=== PATIENT | male | born 1940 | race Caucasian/White ===

== ENCOUNTER 2017-04-26 14:11 | Emergency (ER) | payer OTHER ==
[~2017-04-26] VITALS: Ht 167.6 cm; Wt 79.1 kg
[~2017-04-26 14:11] MED LIST: ASPIRIN325 MG PO; BENICAR HCT 401 EAC1 PO; COLACE100 MG PO; DAILY VITAMIN1 EAC4 PO; DIOVAN HCT 11 TABLE1 PO; DIOVAN HCT 31 TABLE1 PO; LIPITOR40 MG PO; LIPITOR80 MG PO; METOPROLOL TART25 MG PO; NITROSTAT0.4 MG SL; PERCOCET 5/31 TABLET PO; ST. JOSEPH ASPI81 MG PO
[2017-04-26 14:49] LABS: HEMATOCRIT 45.7 % (38.0-50.0); HEMOGLOBIN 15.7 G/DL (12.5-16.6); MCH 30.3 PG (29.0-34.0); MCHC 34.4 G/DL (30.0-36.0); MCV 88.1 FL (86-99); PLATELET COUNT 285 K/uL (156-360); RBC DIS.WIDTH-CV 13.2 % (11.8-14.6); RBC DIS.WIDTH-SD 42.5 % (39-53); RED BLOOD COUNT 5.19 M/uL (4.00-5.50)
[2017-04-26 15:02] LABS: CHLORIDE 102 mEq/L (99-109); POTASSIUM 4.7 mEq/L (3.7-5.4); SODIUM 135 mEq/L (136-147)
[2017-04-26 15:04] LABS: GLUCOSE 109 mg/dL (70-99)
[2017-04-26 15:08] LABS: GFR ESTIMATE (CALCULATED) > 59 mL/min/ (58.99-99999)
[2017-04-26 15:09] LABS: UREA NITROGEN (BUN) 24 mg/dL (9-23)
[2017-04-26] MEDS ORDERED: FLOVENT 11120 INHALA IH (15:47)
[2017-04-26] MEDS ORDERED: PROVENTIL HFA6.7 GM IH (15:47)
[2017-04-26 16:16] VITALS: BP 106/62
== END 2017-04-26 16:18 | disposition home or self-care (01) ==
LOC: EME 14:11
PROVIDERS: Emergency Medicine
DX: J20.9 Acute bronchitis, unspecified (principal); F31.9 Bipolar disorder, unspecified; E78.5 Hyperlipidemia, unspecified; I10 Essential (primary) hypertension; I25.2 Old myocardial infarction; Z87.891 Personal history of nicotine dependence; Z95.1 Presence of aortocoronary bypass graft; Z79.82 Long term (current) use of aspirin
CPT/HCPCS: 80048; 85027; 94640; 94664; 99281; 99284